=== PATIENT | male | born 1930 | race Caucasian/White ===

== ENCOUNTER → 2019-01-21 | Outpatient (CLI) | payer OTHER ==
[~2019-01-21] VITALS: Ht 175.3 cm; Wt 74.8 kg
[~2019-01-21] MED LIST: COQ-10100 MG PO; DIPHENHIST50 MG PO; MAGOX 400400 MG PO; MOBIC15 MG PO; MULTIVITAMINS1 EAC7 PO; NAPROSYN500 MG PO; OMEGA-31000 M1 PO; TUMS PO; VITAMIN E400 UNIT PO
[2019-01-21 09:50] VITALS: BP 136/96
--- NOTE | 2019-01-21 10:16 | NUR ---
Pain Clinic Assessment: 1. History of Osteoarthritis: HANDS NECK History of Rheumatoid Arthritis: Not Applicable 2. Height: 5 ft. 9 in. 175.3 cm. Weight: 165.0 lb. oz. 74.844 kg. Patient's BMI: 24.4 3. Vital Signs: BP: 136/96 Pulse: 75 Resp: 16 Temp: 02 Sat: 98 ECG Mon: 4. Pain Intensity: 0 5. Fall Risk: Dizziness: N Needs help standing or walking: N Fallen in the last 3 months: N Fall risk comments: 6. Patient on Blood Thinner: None 7. History of Hypertension: N 8. Opioid Therapy greater than 6 weeks: N Opiate Contract Signed: 9. Risk Assessment Tool Provided: LOW RISK 0/3 10. Functional Assessment Tool: 0/70 11. Recreational Drug Use: Never Drug Type: Tobacco Use: Never Smoker Tobacco Type: Amount or Packs/day: How Many Years: Alcohol Use: Yes Frequency: Weekly Quant: 2-3
--- NOTE | 2019-02-04 07:47 | HPC ---
[facility] [address] [place] [address] PAIN MANAGEMENT CONSULTATION Name: GERRY CEDEÑO Room #: REG [facility].#: [id number] Admission: 01/21/19 Attend Phys: Richard Ponce DO Discharge: Date of : [birth year] Report #: [id number] THIS REPORT FOR: //name// CC: Richard Vo MD DATE OF SERVICE: 01/21/2019 REFERRING PHYSICIAN: Joey Vo MD CHIEF COMPLAINT: Right neck discomfort. HISTORY OF PRESENT ILLNESS: As you know, the patient is a very pleasant 89-year-old male who has been referred to our service for 3-year progressive onset of right neck pain and inability to rotate to the right. The patient suffers from known osteoarthritic changes, general in nature, and his symptoms were believed to be due to increasing osteoarthritic changes of the cervical spine. He has trialled conservative treatment utilizing amrh-hhe-suhwver medications, cold and heat compresses. These were not able to improve his overall pain. The patient sought evaluation through his primary care physician, Dr. Vo, who referred the patient to our clinic to discuss treatment options for cervical facet arthropathy pain without radicular component. The patient indicates today pain is periodic and momentary, describes the pain when present, shooting. He places pain score anywhere from 8/10. Today, pain is 0/10. His pain has been as high as 10/10. He states his pain is exacerbated with sharp movement, improves with sitting still, without movement of his cervical spine. The patient is most concerned today, not about pain, but about the fact that he cannot rotate fully to the right, which appears to be a physiologic stop of motion due to facet arthropathy pain. He has been referred to our service to discuss treatment options for his current issues. PAST MEDICAL HISTORY: 1. Chronic anemia. 2. Fatigue. 3. Osteoarthritis. 4. History of basal cell carcinoma. PAST SURGICAL HISTORY: 1. Rotator cuff. 2. Left knee arthroplasty. SOCIAL HISTORY: The patient denies tobacco use. He denies IV or illicit drug use. Admits to approximately 3 alcoholic beverages per week. He is a sales account leader. He is no longer working. He has been out of the workforce for nearly [facility] [address] [place] [address] PAIN MANAGEMENT CONSULTATION Name: GERRY CEDEÑO Room #: REG [facility].#: [id number] Admission: 01/21/19 Attend Phys: Richard Ponce DO Discharge: Date of : [birth year] Report #: [id number] 20 years. He is not receiving workmen's compensation, nor is he trying to obtain disability benefits. He is accompanied by significant other. REVIEW OF SYSTEMS: Positive for wearing corrective eyewear, frequent urination, nocturia, neck pain and immobility. All other review of systems negative per 12-point review of systems other than those listed in the history of present illness. Pain impact score is 0/70 indicating no interference of daily activities secondary to pain. ALLERGIES: PENICILLINS. CURRENT MEDICATIONS: Green-3 fish oil 1 tablet per day, magnesium oxide 400 mg once a day, diphenhydramine 50 mg p.o. at bedtime, vitamin E 400 units per day, Coenzyme Q10 100 mg once a day, multivitamin 1 tablet per day, meloxicam 15 mg per day, calcium carbonate 50 mg twice a day. IMAGING: No imaging available. PQRS: The patient has known arthritic changes of bilateral hands and neck. No rheumatoid arthritis. He is placing pain intensity today 0/10. He is not a fall risk, has not had a fall in the last 3 months. He is not on blood thinners, not treated for hypertension. He is not on chronic opioids. He has a low opioid addiction potential. Pain impact score 0/70. No interference of daily activities secondary to pain. PHYSICAL EXAMINATION: VITAL SIGNS: Blood pressure 136/96, pulse 75, respiratory rate 16 and unlabored. The patient is 98% on room air. Height 5 feet 9 inches tall, weight 165 pounds, BMI calculated 24.4. GENERAL: Well-developed, well-nourished, well-hydrated 89-year-old male appearing stated age. He is in no acute distress, awake, alert and oriented x 3, pain 0/10. HEENT: Normocephalic, atraumatic. Pupils equal, round, reactive to light. Extraocular muscles are intact. Sclerae nonicteric without injection. NEUROLOGIC: Speech is fluent. The patient deemed an excellent historian. LUNGS: Clear, no wheeze, rhonchi or rales. CARDIOVASCULAR: Regular. No appreciable gallop, no rub. ABDOMEN: Soft, nontender, nondistended, normoactive bowel sounds. EXTREMITIES: Show no clubbing, no cyanosis, and no edema. MUSCULOSKELETAL: There is some palpatory tenderness noted over the paraspinal musculature of the right cervical spine, negative left. Deep palpation of the area causes intensification of pain over what appears to be the C4-C5, C5-C6 and C6-C7 levels on the right. Range of motion of the cervical spine is mildly reduced to left, severely reduced to the right. Pain is elicited with [facility] [address] [place] [address] PAIN MANAGEMENT CONSULTATION Name: GERRY CEDEÑO Room #: REG [facility]#: [id number] Admission: 01/21/19 Attend Phys: Richard Ponce DO Discharge: Date of : [birth year] Report #: [id number] physiologic stop of the rotation of the cervical spine. This is not an anatomical stop. Cervical provocation testing, besides the rotation component, does not appear to exacerbate pain. There is lqlaubep-jx-qypydu limitation to lateral flexion to the right as well as forward flexion. Upper extremity strength equal and symmetrical. There is no radicular component of his symptoms. Spurling's test is negative. 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 PLAN: 1. Based on today's physical exam and the history the patient has provided, the description the patient uses in regards to pain as well as location of symptoms and the lack of any radiation of a radicular component, likely source of the patient's pain is cervical facet arthropathy, also known as cervical spondylosis without radiculopathy. We discussed with the patient today the treatment options for the findings that he has. The patient is reporting no pain at today's visit. We discussed physical therapy, stretching exercises and traction techniques. This would provide the patient with improvement in mobility and potential reduction in recurrent pain, though at this point, the patient is experiencing no discomfort. We discussed medication management utilizing nonsteroidal anti-inflammatories for baseline osteoarthritic inflammatory processes, and more aggressive treatment with tramadol might be necessary for those times when his pain is present. We can defer to the primary team for these medications. We discussed intra-articular facet injections as a possible treatment, alternative and ultimately surgical stabilization. Though this will improve the patient's overall pain, it will maintain his lack of rotational capability. After reviewing the risks and benefits of all proposed treatment options, the patient chose to move forward with conservative physical therapy. 2. The patient will be sent for physical therapy twice a week for 6 weeks. We have requested evaluation and treatment along with modalities such as moist heat, ultrasound and ultimately traction techniques in hopes of improving mobility and potentially improving what pain the patient has had periodically. The patient will begin this physical therapy as quickly as possible. We are hopeful he will see improvement in his overall symptoms, mainly his rotational component that he is most concerned about today. 3. We will start the patient on naproxen 500 mg dose 1 tablet p.o. t.i.d. I have given the patient #90 tablets. I have advised the patient initially to try the medication 3 times a day, specifically when he is going through his physical therapy, he can then reduce to the lowest most effective dose if necessary in the future. I have given the patient #90 tablets, 2 refills. I have advised the patient to watch for dyspepsia, worsening of blood pressure or lower extremity edema. If he notes any of those side effects, discontinue immediately. 4. We will see the patient back in followup visit on an as needed basis. We [address] [address] PAIN MANAGEMENT CONSULTATION Name: GERRY CEDEÑO Room #: REG [facility]#: [id number] Admission: 01/21/19 Attend Phys: Richard Ponce DO Discharge: Date of : [birth year] Report #: [id number] are hopeful the patient will see improvement in his right rotational limitations that he is most concerned about today. 5. We wish to thank Dr. Vo for the referral of the patient to our clinic. We will be returning his care to your capable hands for treatment for his mild facet degenerative changes and rotational concerns. We will see him back if interventional treatments are necessary. <ELECTRONICALLY SIGNED> By: Richard Ponce DO 02/04/19 [id number] Richard Ponce DO /nt
== END ==
LOC: PAIN 06:53
DX: M47.812 Spondylosis without myelopathy or radiculopathy, cervical region (principal); M19.90 Unspecified osteoarthritis, unspecified site; Z79.899 Other long term (current) drug therapy; Z88.8 Allergy status to other drugs, medicaments and biological substances